=== PATIENT | female | born 1975 | race Caucasian/White ===

== ENCOUNTER 2024-10-20 09:07 | Emergency (ER) | payer BC ==
[2024-10-20 09:16] VITALS: RESP 18; TEMP 99.4
--- NOTE | 2024-10-20 10:39 | ED ---
General Adult HPI - General Chief complaint: Recheck/Abnormal Lab/Rx Stated complaint: R side facial pain Time Seen by Provider: 10/20/24 09:23 Source: patient, family Mode of arrival: ambulatory Limitations: no limitations - History of Present Illness Initial comments: The patient is a 49-year-old female who has a history of recurring right sided facial's herpes zoster's but is otherwise healthy presents emergency room with complaints of right-sided head and facial pain. Patient states that started several days ago and has been persistent since. Patient has been seen twice for similar pain. Initially she was diagnosed with a possible dental infection and root canal however after seeing the dentist this was ruled out. She was then told she may have a blocked salivary duct. Patient has been on 2 antibiotics including amoxicillin and Keflex without improvement. Patient states that she was having significant pain last night and could not sleep and remembered that she has had this pain in the past with shingles. She has had shingles on the right side of the face 3 or 4 other times. She states she had a rash the first time and in the second time she only had a few vesicles on the upper neck and then the last 2 times she had symptoms without a rash. She states that the symptoms did not improve with starting the antiviral. She states she has been under a lot of stress lately but denies any cough congestion or fevers. She denies any vision changes or neurological symptoms. She denies any history of trigeminal neuralgia. Denies any facial droop or slurred speech. - Related Data Previous Rx's Medication Instructions Recorded Acyclovir 800 mg PO 5XD 7 Days #35 tab 10/20/24 Acyclovir [Zovirax] 800 mg PO 5XD 7 Days #35 tab 10/20/24 Ketorolac [Toradol] 10 mg PO Q8HR #15 tab 10/20/24 oxyCODONE HCL [OxyIR] 5 mg PO Q6H PRN 2 Days #8 tab 10/20/24 Allergies Allergy/AdvReac Type Severity Reaction Status Date / Time codeine Allergy Itching Verified 10/20/24 09:15 Review of Systems ROS Statement: Those systems with pertinent positive or pertinent negative responses have been documented in the HPI. ROS Other: All systems not noted in ROS Statement are negative. Constitutional: Reports: as per HPI Eyes: Denies: eye pain, eye discharge, vision change ENT: Reports: ear pain, other (Facial pain) Respiratory: Reports: as per HPI Cardiovascular: Reports: as per HPI Skin: Denies: rash, lesions Past Medical History Past Medical History: No Reported History History of Any Multi-Drug Resistant Organisms: None Reported Past Surgical History: Section, Cholecystectomy, Hernia Repair Past Psychological History: No Psychological Hx Reported Smoking Status: Never smoker Past Alcohol Use History: Occasional Past Drug Use History: None Reported General Exam Limitations: no limitations General appearance: alert Head exam: Present: atraumatic Eye exam: Present: normal appearance, PERRL, EOMI ENT exam: Present: normal exam Neck exam: Present: normal inspection, full ROM Respiratory exam: Present: normal lung sounds bilaterally Cardiovascular Exam: Present: regular rate Extremities exam: Present: full ROM Back exam: Present: full ROM Neurological exam: Present: alert, oriented X3, CN II-XII intact Psychiatric exam: Present: normal affect, normal mood Skin exam: Present: warm, dry. Absent: rash Course Vital Signs 10/20/24 10/20/24 09:11 12:48 Temperature 99.4 F Pulse Rate 92 76 Respiratory 18 18 Rate Blood Pressure 159/94 122/70 O2 Sat by Pulse 100 98 Oximetry - Reevaluation(s) Reevaluation #1: 10/20/24 1235 The patient is well-appearing in the emergency room with no neurological symptoms. No difficulty breathing. Given that the patient has had shingles in the in the past multiple times on the right side of the face including a few times without any symptoms that improved with the a antiviral we will treat it presumptively as shingles. I did do a send out test to confirm that this is shingles versus a possible trigeminal neuralgia. Given that the patient has a 99 temp and with the improvement in previous cases we will treat prophylactically while we wait on the results. She has to follow-up with her primary care physician who may also follow the results. Patient given pain medicine in the emergency room today Medical Decision Making - Medical Decision Making Was pt. sent in by a medical professional or institution (, PA, FIELD MAP EDITOR, urgent care, hospital, or correction...) When possible be specific @ -[No] Did you speak to anyone other than the patient for history (EMS, parent, family, police, friend...)? What history was obtained from this source @ -[No] Did you review nursing and triage notes (agree or disagree)? Why? @ -[I reviewed and agree with nursing and triage notes] Were old charts reviewed (outside hosp., previous admission, EMS record, old EKG, old radiological studies, urgent care reports/EKG's, correction records)? Report findings @ -Yes old charts were reviewed Differential Diagnosis (chest pain, altered mental status, abdominal pain women, abdominal pain men, vaginal bleeding, weakness, fever, dyspnea, syncope, headache, dizziness, GI bleed, back pain, seizure, CVA, palpatations, mental health, musculoskeletal)? @ -Herpes ulcers of the right face, trigeminal neuralgia EKG interpreted by me (3pts min.). @ -[As above] X-rays interpreted by me (1pt min.). @ -[None done] CT interpreted by me (1pt min.). @ -[None done] U/S interpreted by me (1pt. min.). @ -[None done] What testing was considered but not performed or refused? (CT, X-rays, U/S, labs)? Why? @ -[None] What meds were considered but not given or refused? Why? @ -[None] Did you discuss the management of the patient with other professionals (professionals i.e. , PA, FIELD MAP EDITOR, lab, RT, psych nurse, high school social science teacher, wrapper stemmer operator, teacher, chief marketing officer, pillowcase folder)? Give summary @ -Discussed management with attending ED physician Dr. Goodman Was smoking cessation discussed for >3mins.? @ -[No] Was critical care preformed (if so, how long)? @ -[No] Were there social determinants of health that impacted care today? How? (Homelessness, low income, unemployed, alcoholism, drug addiction, transportation, low edu. Level, literacy, decrease access to med. care, shelter, rehab)? @ -[No] Was there de-escalation of care discussed even if they declined (Discuss DNR or withdrawal of care, Hospice)? DNR status @ -[No] What co-morbidities impacted this encounter? (DM, HTN, Smoking, COPD, CAD, Cancer, CVA, ARF, Chemo, Hep., AIDS, mental health diagnosis, sleep apnea, morbid obesity)? @ -[None] Was patient admitted / discharged? Hospital course, mention meds given and route, prescriptions, significant lab abnormalities, going to OR and other pertinent info. @ -Patient is stable at this time she has no neurological symptoms and vital signs are stable. Patient can manage her symptoms as an outpatient and may follow-up with her primary care physician Undiagnosed new problem with uncertain prognosis? @ -[No] Drug Therapy requiring intensive monitoring for toxicity (Heparin, Nitro, Insulin, Cardizem)? @ -[No] Were any procedures done? @ -[No] Diagnosis/symptom? @ -Suspected herpes zoster's of the right face, possible trigeminal neuralgia Acute, or Chronic, or Acute on Chronic? @ -Acute Uncomplicated (without systemic symptoms) or Complicated (systemic symptoms)? @ -[default] Side effects of treatment? @ -[No] Exacerbation, Progression, or Severe Exacerbation? @ -[No] Poses a threat to life or bodily function? How? (Chest pain, [place], [place], pneumonia, PE, COPD, DKA, ARF, appy, cholecystitis, CVA, Diverticulitis, Homicidal, Suicidal, threat to staff... and all critical care pts) @ -[No] Disposition Clinical Impression: Herpes zoster, Trigeminal neuralgia pain Disposition: HOME SELF-CARE Condition: Good Prescriptions: Acyclovir 800 mg PO 5XD 7 Days #35 tab oxyCODONE HCL [OxyIR] 5 mg PO Q6H PRN 2 Days #8 tab PRN Reason: Pain Ketorolac [Toradol] 10 mg PO Q8HR #15 tab Acyclovir [Zovirax] 800 mg PO 5XD 7 Days #35 tab Is patient prescribed a controlled substance at d/c from ED?: Yes When asked, does pt state using other controlled substances?: No If prescribed controlled substance>3 days was MAPS reviewed?: Prescribed <3 Days If opioid is for acute pain is fill amount 7 days or less?: No If Rx opioid, was Start Talking consent form obtained?: No Referrals: Nonstaff,Physician [Primary Care Provider] - 1-2 days Time of Disposition: 12:43
[2024-10-20] MEDS: KETOROLAC 15 MG/ML 1 ML VIAL IM STA (10:48)
[2024-10-20] MEDS: HYDROmorphone 1 MG/ML 1 ML SYRINGE IM STA (10:49)
[2024-10-20] MEDS: ACYCLOVIR 800 MG TAB PO STA (11:23)
[2024-10-20 12:48] VITALS: BP 122/70; PULSE 76
== END 2024-10-20 12:48 | disposition home or self-care (01) ==
LOC: EC 09:07
DX: B02.9 Zoster without complications (principal); G50.0 Trigeminal neuralgia; Z88.5 Allergy status to narcotic agent
CPT/HCPCS: 87798; 99284; 96372 ×2; J1171; J1885